=== PATIENT | female | born 1960 | race Caucasian/White ===

== ENCOUNTER 2018-02-20 08:30 | Inpatient (IN) | payer OTHER ==
[~2018-02-20] VITALS: Ht 152.4 cm; Wt 61.2 kg
[2018-02-20] MEDS ORDERED: DYAZIDE 37.5-21 EACH PO (09:49)
[2018-02-20] MEDS ORDERED: LIPITOR20 MG PO (09:49)
[2018-02-20] MEDS ORDERED: ESTR0.624 PO (09:49)
[2018-02-20] MEDS ORDERED: SINGULAIR 10MG10 MG PO (09:50)
[2018-02-20] MEDS ORDERED: LOTREL 5-20 MG1 CAP PO (09:50)
[2018-02-20] MEDS ORDERED: RESTORIL30 M1 PO (09:50)
[2018-02-20] MEDS ORDERED: CLONAZEPAM0.5 MG PO (09:51)
[2018-03-02] MEDS ORDERED: PERCOCET 5-3251 EACH PO (08:03)
[2018-03-02] MEDS ORDERED: DUI500 PO (08:03)
[2018-03-02] MEDS ORDERED: XARELTO10 MG PO (08:03)
== END 2018-03-02 13:50 | DRG 470 ==
LOC: SURH 02-27 06:15 → O/R 02-27 06:15 → SURH 02-27 08:30
PROVIDERS: Orthopaedic Surgery
PROC: 0QND0ZZ Release Right Patella, Open Approach (ICD-10-PCS; 2018-02-27)
PROC: 3E0F7GC Introduction of Other Therapeutic Substance into Respiratory Tract, Via Natural or Artificial Opening (ICD-10-PCS; 2018-02-27)
PROC: 0SRC0J9 Replacement of Right Knee Joint with Synthetic Substitute, Cemented, Open Approach (ICD-10-PCS; principal; 2018-02-27 12:30)
DX: M17.11 Unilateral primary osteoarthritis, right knee (principal); D62 Acute posthemorrhagic anemia; M85.461 Solitary bone cyst, right tibia and fibula; S83.011A Lateral subluxation of right patella, initial encounter; J45.20 Mild intermittent asthma, uncomplicated; I10 Essential (primary) hypertension